=== PATIENT | female | born 1935 | race Caucasian/White ===

== ENCOUNTER → 2019-08-23 | Outpatient (CLI) | payer OTHER, BC | LOC: RAD 10:51 | DX: J98.11 Atelectasis (principal); R91.8 Other nonspecific abnormal finding of lung field; I42.0 Dilated cardiomyopathy; M19.011 Primary osteoarthritis, right shoulder; M19.012 Primary osteoarthritis, left shoulder; M24.412 Recurrent dislocation, left shoulder; M75.101 Unspecified rotator cuff tear or rupture of right shoulder, not specified as traumatic ==

== ENCOUNTER → 2021-08-27 | Outpatient (CLI) | payer OTHER, BC | LOC: HYPER 09:27 | PROVIDERS: ATTEND Emergency Medicine Emergency Medical Services | DX: T81.31XD Disruption of external operation (surgical) wound, not elsewhere classified, subsequent encounter (principal); I87.313 Chronic venous hypertension (idiopathic) with ulcer of bilateral lower extremity; L97.822 Non-pressure chronic ulcer of other part of left lower leg with fat layer exposed; L97.812 Non-pressure chronic ulcer of other part of right lower leg with fat layer exposed; R60.1 Generalized edema; I89.0 Lymphedema, not elsewhere classified; C44.719 Basal cell carcinoma of skin of left lower limb, including hip; M19.90 Unspecified osteoarthritis, unspecified site; E03.9 Hypothyroidism, unspecified; G25.81 Restless legs syndrome; M81.0 Age-related osteoporosis without current pathological fracture; I25.2 Old myocardial infarction; Z96.653 Presence of artificial knee joint, bilateral; Y83.8 Other surgical procedures as the cause of abnormal reaction of the patient, or of later complication, without mention of misadventure at the time of the procedure ==